=== PATIENT | male | born 1995 | race Caucasian/White ===

== ENCOUNTER 2018-04-28 21:38 | Emergency (ER) | payer SELFPAY ==
[2018-04-28 21:38] VITALS: BP 133/74; PULSE 71; RESP 16; TEMP 36.8; O2SAT 99; BMI 21.7
[2018-04-28 22:14] VITALS: BP 135/88; PULSE 67; RESP 14; O2SAT 97
--- NOTE | 2018-04-28 22:22 | CT_ITS ---
STUDY: CT ABDOMEN AND PELVIS WITH CONTRAST REASON FOR EXAM: Male, 23 years old. Crohn's disease. Vomiting and diarrhea. Previous bowel surgery. RADIATION DOSAGE (If Supplied By Facility): CTDIvol = ( 9.46 ) mGy, DLP = ( 445.30 ) mGycm TECHNIQUE: Transaxial images were obtained from the dome of the diaphragm to the symphysis pubis without oral contrast. 100ML ml of Isovue 300 contrast was administered. Sagittal and coronal images were reconstructed. Individualized dose optimization techniques were used for this CT. COMPARISON: None. FINDINGS: The visualized lung bases are unremarkable. The visualized portions of the heart are within normal limits. Normal liver. Normal gallbladder and extrahepatic biliary system. Normal spleen. Normal pancreas. Normal bilateral adrenal glands. 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 The right renal moiety is particularly amorphous. Since previous exam, patient has developed numerous renal stones as much as 5 or 6 mm size, primarily in the left and mid renal mass. No definite obstructing stone at this time. Evaluation of the GI tract is very limited without oral contrast in this postoperative patient with Crohn's disease. It is very difficult to evaluate bowel wall without oral contrast. Grossly normal stomach. No evidence for small bowel obstruction. In the right lower quadrant, there is a small bowel feeding tube and enteric anastomosis with the right colon, which appears fluid-filled and may have a thickened wall with enhancement. This may represent active inflammatory bowel disease. Also cannot exclude stricture at the anastomosis. This loop of bowel is approximately 12 cm in length. Findings can best be seen on coronal images 26-48 and sagittal images 29-47. No definite abnormality of the large bowel. Normal abdominal aorta. Normal inferior vena cava. There is retroperitoneal lymphadenopathy with enlarged nodes greater than 10-15mm in the short axis. Normal urinary bladder. Stable postsurgical changes in the right abdominal wall. Normal osseous structures. CT/Abdomen/Pelvis W IV Cont ONLY IMPRESSION: Abnormal appearance of the distal ileum up to and including the area of anastomosis with the right colon. Question active inflammatory bowel disease. Note that evaluation of patient's with Crohn's disease is limited without oral contrast is not given. Horseshoe kidney again noted with numerous renal stones having developed since previous exam. Electronically Signed: Louis Lassiter MD at 23:52 EDT , Service support ,
--- NOTE | 2018-04-28 22:25 | ED.VISSUMM ---
- ER Visit Summary Date of Service: 04/28/18 Chief Complaint: Abdominal pain History of Present Illness: The patient is a 23 M with a history of Crohn's disease who presents to the emergency department with abdominal pain. Patient states that he has been having symptoms emergently for 2 weeks, but they worsened over the past 2 days. He describes a sharp pain in his midepigastric area. His been nauseated and had 2 bouts of vomiting. Patient is not on any medications for Crohn's. He states that he has not seen GI in over a year. He denies any bloody diarrhea. He denies any fevers, chills, weight loss. He was recently treated for a staph infection of his arm and was on 2 antibiotics. He states he finishes treatment. He has no history of C. difficile. He has had prior small bowel obstruction, but states the symptoms feel different. Physical Examination: Vital signs reviewed General: Well-nourished, well-developed Head: Normocephalic, atraumatic Eyes: Pupils equal and reactive, extraocular muscles intact Neck, supple, no lymphadenopathy Heart: Regular rate and rhythm Respiratory: No distress, clear bilaterally Abdomen: Soft, mildly tender in the right lower quadrant area without rebound or guarding, nondistended, no peritoneal signs Back: Nontender Extremities: Nontender, no edema, no cords Skin: Normal color no rash Neuro: Alert and oriented, no focal or lateralizing deficits Test Results: [] Emergency Department Course and Treatment: IV was established. Patient was treated with IV fluids, antiemetics, and analgesics. He had marked improvement of his pain. His reexamination was soft and nontender. Screening labs are unremarkable. With the patient's history of Crohn's disease and small bowel obstruction, he was sent for CT with IV contrast. CT does demonstrate some terminal ileitis. I do for the patient is having mild exacerbation of his Crohn's disease. After discussion with him, I do feel that short burst of prednisone be appropriate. The patient will be started on Solu-Medrol. He will be kept on prednisone for the next 5 days. He will be treated with analgesics and antiemetics. He was counseled on concerning symptoms and reasons to return. He will be discharged home. Treatment Plan: [] Disposition: Discharge Impression: 1. Crohn's flare This note was generated with ADTELLIGENCEation software. It may contain incorrect words, spelling, and punctuation that were not noted in review of the chart prior to signing ED Disposition - Plan for ED Patient: Chief Complaint: Abd Pain Instructions: ED Inflam Bowel Disease Crohn Prescriptions: Hydrocodone Bitart/Apap 5-325 [[place] 5MG-325MG] 1 tab PO Q6H PRN PRN 3 Days #6 tab PRN Reason: Pain Ondansetron [Zofran Odt] 4 mg PO Q8H PRN PRN #10 tab PRN Reason: Nausea Prednisone [Deltasone] 40 mg PO DAILY #8 tab Referrals: Care Physician,No Primary [NON-STAFF] -
[2018-04-28] MEDS: Ondansetron 4 MG/2 ML Vial IV (22:58)
[2018-04-28] MEDS: Morphine 4 MG/ML Syringe IV (22:58)
[2018-04-28] MEDS: 0.9% Normal Saline 1,000 ML 1000 ML IV (22:58)
[2018-04-28 23:05] LABS: Absolute Lymphocyte Count 2.75 X10^3/ul (0.83-4.51); Absolute Neutrophil Count 6.7 X10^3/uL (2.0-7.7); Basophil# 0.03 X10^3/uL; Basophil% 0.3 % (0-1); Hematocrit 42.7 % (40-54); Hemoglobin 14.6 g/dl (13.0-16.5); Lymphocyte # 2.75 X10^3/ul (4.0); Lymphocyte % 27.7 % (19-41); Mean Corp Hgb Conc 34.2 g/gl (32-36); Mean Corpuscular Hgb 28.8 pg (27.0-32.0); Mean Corpuscular Volume 84.2 fL (80-94); Mean Platelet Vol. 9.5 fl (6.2-12.0); Neutrophil # 6.65 X10^3/uL (2.7-7.7); Neutrophil % 66.9 % (47-70); Platelet Count 252 K/mm3 (150-450); RBC Distribution Width CV 12.6 % (11.6-14.6); RBC Distribution Width SD 38.2 fl (35.1-43.9); Red Blood Count 5.07 M/mm3 (4.6-6.2); White Blood Count 9.9 K/mm3 (4.4-11.0)
[2018-04-28 23:07] LABS: POSITIVE COUNT NO; POSITIVE DIFFERENTIAL NO; POSITIVE MORPHOLOGY NO
[2018-04-28 23:19] LABS: ALB/GLOB Ratio 1.1 RATIO (0.9-2.4); AST(SGOT) 39 U/L (15-37); Alanine Aminotransfer ALT/SGPT 55 U/L (16-61); Albumin, Serum 3.6 g/dL (3.2-5.0); Alkaline Phosphatase 81 U/L (45-117); Anion Gap 7 (5-15); BUN 7 mg/dL (7-18); BUN/Creat Ratio 6.2 RATIO (10-20); Calcium,Total 8.7 mg/dL (8.5-10.1); Chloride 105 mmol/L (98-107); Creatinine, Serum 1.12 mg/dL (0.70-1.30); EST Glomerular Filtration Rate 87 mL/min (>60); Est Glom Filt Rate - Afr Amer 105 mL/min (>60); Globulin 3.2 g/dL (2.2-4.2); Glucose 93 mg/dL (74-106); Lipase 83 U/L (73-393); Potassium 3.3 mmol/L (3.5-5.1); Protein, Total 6.8 g/dL (6.4-8.2); Sodium Level 142 mmol/L (136-145)
[2018-04-29] MEDS: MethylPREDNISolone 125 MG/2 ML Vial 80 MG IV (00:12)
[2018-04-29 00:35] VITALS: PULSE 78; RESP 16; O2SAT 98
== END 2018-04-29 00:36 | disposition home or self-care (01) ==
PROVIDERS: Emergency Provider Emergency Medicine; Family Provider Pediatrics; PCP Pediatrics
DX: K50.90 Crohn's disease, unspecified, without complications (principal)
CPT/HCPCS: 74177; 80053; 83690; 85025; 96361; 96374; 96375; 99283; J7030; Q9967; A4216; J2405

== ENCOUNTER 2018-05-28 12:21 | Emergency (ER) | payer SELFPAY ==
[2018-05-28 12:22] VITALS: BP 122/75; PULSE 82; RESP 18; TEMP 36.7; O2SAT 99; BMI 21.2
[2018-05-28 13:21] LABS: Absolute Lymphocyte Count 2.07 X10^3/ul (0.83-4.51); Absolute Neutrophil Count 5.4 X10^3/uL (2.0-7.7); Basophil# 0.01 X10^3/uL; Basophil% 0.1 % (0-1); Eosinophil# 0.05 X10^3/uL; Eosinophils% 0.6 % (0-5); Hematocrit 45.9 % (40-54); Hemoglobin 16.1 g/dl (13.0-16.5); Lymphocyte # 2.07 X10^3/ul (4.0); Lymphocyte % 25.9 % (19-41); Mean Corp Hgb Conc 35.1 g/gl (32-36); Mean Corpuscular Hgb 29.2 pg (27.0-32.0); Mean Corpuscular Volume 83.3 fL (80-94); Mean Platelet Vol. 9.6 fl (6.2-12.0); Monocyte# 0.48 X10^3/uL; Neutrophil # 5.38 X10^3/uL (2.7-7.7); Neutrophil % 67.3 % (47-70); POSITIVE COUNT NO; POSITIVE DIFFERENTIAL NO; POSITIVE MORPHOLOGY NO; Platelet Count 237 K/mm3 (150-450); RBC Distribution Width CV 12.6 % (11.6-14.6); RBC Distribution Width SD 38.2 fl (35.1-43.9); Red Blood Count 5.51 M/mm3 (4.6-6.2)
[2018-05-28 13:33] LABS: Anion Gap 7 (5-15); BUN 10 mg/dL (7-18); BUN/Creat Ratio 8.6 RATIO (10-20); Calcium,Total 9.1 mg/dL (8.5-10.1); Chloride 106 mmol/L (98-107); Creatinine, Serum 1.16 mg/dL (0.70-1.30); EST Glomerular Filtration Rate 83 mL/min (>60); Est Glom Filt Rate - Afr Amer 101 mL/min (>60); Estimated Creatinine Clearance 100.45 ml/min; Glucose 93 mg/dL (74-106); Potassium 4.1 mmol/L (3.5-5.1); Sodium Level 140 mmol/L (136-145)
[2018-05-28 14:14] LABS: Bacteria 0 SEEN /hpf (None Seen); Mucous, Urine 0 SEEN /hpf (<or=2+); Squamous Epithelial Cells - UA 0 SEEN /hpf (0-5)
[2018-05-28 14:23] LABS: Color, Urine Yellow (Yellow); Glucose, Dipstick Normal (Normal); Ketone-Dipstick Negative (Negative); Leukocyte Esterase-Dipstick Negative /ul (Negative); Nitrite-Dipstick Negative (Negative); Occult Blood-Urine 10 /ul (Negative); Protein-Dipstick Negative (Negative); Urine Bilirubin Dipstick Negative (Negative); Urine Clarity Clear (Clear); Urine Urobilinogen Normal (Normal)
[2018-05-28 14:30] LABS: Red Blood Cells-Urine 0-5 SEEN /hpf (0-5); White Blood Cells 0-5 SEEN /hpf (0-5)
[2018-05-28 14:31] VITALS: BP 124/89; PULSE 70; RESP 16; O2SAT 97
--- NOTE | 2018-05-28 14:36 | ED.VISSUMM ---
- ER Visit Summary Date of Service: 05/28/18 Chief Complaint: [] Epigastric pain history of Crohn's disease History of Present Illness: The patient is a 23 M [] Crohn's disease, he indicates that prior abdominal surgery related to the above he is to see a GI physician later [facility] that physician moved his insurance changed so he is has a primary care physician but has not seen any physicians for his Crohn's disease in some time. Indicates that the epigastric pain about 3 days ago. He is able to eat and drink his bowel bladder habits been normal no fever no cough indicates usually when he experiences this type of pain he is given prednisone he had nowhere to go for the prednisone so he came to the emergency department he has no other complaints Physical Examination: [] Vital signs are within normal range she is had no fever no cough again bowel bladder habits have been normal he is resting the bed no distress head neck unremarkable the chest is clear the heart tones unremarkable the abdomen is soft there is prior abdominal incisions from prior surgeries he complains of epigastric pain but the abdomen is soft there is no rebound guarding organomegaly there is no distention he assures me is having normal bowel habits without blood there is no physical findings or historical findings to suggest bowel obstruction or infection he is awake alert moving all fours backs unremarkable Test Results: [] Emergency Department Course and Treatment: [] IV fluids screening labs unremarkable he is taking oral fluids here and soft foods, he wants to go home he does not wish to be admitted he indicates he had a bowel obstruction before he does not feels if he has one he simply wants prednisone to help with his symptoms. I explained the prednisone can mask his symptoms and cause other complications in the emergency department is not the place to obtain prednisone given that he is between physicians he was given 40 mg of prednisone here started on 20 mill grams of prednisone for 4 days through the weekend to allow him the opportunity follow-up with the [facility] G[facility] physicians or his primary care physician for further management he will return for change in symptoms he agrees with this plan Treatment Plan: [] Disposition: [] Home stable Impression: [] epiGastric pain, exacerbation of Crohn's disease This note was generated with BioAssets Developmentation software. It may contain incorrect words, spelling, and punctuation that were not noted in review of the chart prior to signing ED Disposition - Plan for ED Patient: Chief Complaint: Abd Pain Referrals: Gabino Pace MD [Primary Care Provider] -
--- NOTE | 2018-05-28 14:38 | ED.DEP ---
ED Disposition - Plan for ED Patient: Chief Complaint: Abd Pain Instructions: ED Abdominal Pain Unkn Cause Prescriptions: Prednisone [Deltasone] 20 mg PO DAILY #4 tab Referrals: Gabino Pace MD [Primary Care Provider] -
[2018-05-28] MEDS: 0.9% Normal Saline 1,000 ML 999 ML IV (14:57)
[2018-05-28] MEDS: predniSONE 20 MG Tablet 40 MG PO (14:57)
== END 2018-05-28 15:48 | disposition home or self-care (01) ==
LOC: ED 14:30
PROVIDERS: Emergency Provider Emergency Medicine; Family Provider Pediatrics; PCP Pediatrics
DX: K50.90 Crohn's disease, unspecified, without complications (principal)
CPT/HCPCS: 80048; 81001; 85025; 96360; 99283; J7030; A4216

== ENCOUNTER 2018-11-25 21:17 | Emergency (ER) | payer SELFPAY ==
[2018-11-25 21:17] VITALS: BP 137/88; PULSE 72; RESP 16; TEMP 37.1; O2SAT 96; BMI 23.8
[2018-11-25 22:02] LABS: Bacteria 0 SEEN /hpf (None Seen); Mucous, Urine 0 SEEN /hpf (<or=2+); Squamous Epithelial Cells - UA 0 SEEN /hpf (0-5); White Blood Cells 0 SEEN /hpf (0-5)
[2018-11-25 22:12] LABS: Color, Urine Yellow (Yellow); Glucose, Dipstick Normal (Normal); Ketone-Dipstick 5 mg/dl (Negative); Leukocyte Esterase-Dipstick Negative /ul (Negative); Nitrite-Dipstick Negative (Negative); Occult Blood-Urine 10 /ul (Negative); Protein-Dipstick Negative (Negative); Urine Bilirubin Dipstick Negative (Negative); Urine Clarity Clear (Clear); Urine Urobilinogen 1 mg/dl (Normal); Urine pH 6.5 (5.0 - 8.0)
[2018-11-25 22:13] LABS: Red Blood Cells-Urine 0-5 SEEN /hpf (0-5)
[2018-11-25] MEDS: Acetaminophen 500 MG Tablet 1000 MG PO (22:18)
--- NOTE | 2018-11-25 22:32 | ED.VISSUMM ---
- ER Visit Summary Date of Service: 11/25/18 Chief Complaint: Dysuria History of Present Illness: The patient is a 23 M who presents the emergency department 1 week of a constant right flank pain. There is no waxing and waning to it there are no times but has not been there. Nothing seems to make it better or worse. He also notes some painful urination and frequent small amounts. Notes nausea but no vomiting. He has a history of Crohn's disease and states that he always is nauseous. Sounds like he has had ileocolectomy with reversal in 2014. He is a smoker. States he has no penile drainage or lesions. He has been in a monogamous relationship for 2 years. Physical Examination: Afebrile vital signs are stable Gen: Well-nourished well-developed Head: Normocephalic atraumatic Eyes: Perrl EOMI ENT: TMs clear no rhinorrhea moist mucous membranes Neck: Supple no lymphadenopathy no JVD nontender CVS: Regular rate rhythm no murmurs normal S1-S2 Respiratory: No distress clear to auscultation bilaterally chest nontender Abdomen: Soft nontender nondistended normal bowel sounds no masses Back: Nontender Extremity: Nontender no edema Skin: Normal color no rash Neuro: alert orientated ?3 CN II-XII intact normal strength sensation reflexes gait cerebellar Psych: Normal affect normal mood Test Results: UA was normal Emergency Department Course and Treatment: Patient has had numerous CTs over the course of his lifetime due to his Crohn's. I have low suspicion based on history and physical that this is a kidney stone. I think is reasonable to treat with anti-inflammatories and oral hydration. Encouraged him to keep his urine a clear to light yellow. If symptoms persist more than a few days now he should follow-up with urology. Patient is agreeable to this plan. Impression: 1. Dysuria 2. Flank pain This note was generated with Klosetshop dictation software. It may contain incorrect words, spelling, and punctuation that were not noted in review of the chart prior to signing ED Disposition - Plan for ED Patient: Disposition: Home or Assisted Living Instructions: ED Dysuria Uncertain Cause Referrals: Leonel Salas MD [STAFF PHYSICIAN] - 3-5 Days if not improving
--- NOTE | 2018-11-25 22:35 | ED.DCSUM_ITS ---
- ER Visit Summary Date of Service: 11/25/18 Chief Complaint: Dysuria History of Present Illness: The patient is a 23 M who presents the emergency department 1 week of a constant right flank pain. There is no waxing and waning to it there are no times but has not been there. Nothing seems to make it bean r or worse. He also notes some painful urination and frequent small amounts. Notes nausea but no vomiting. He has a history of Crohn's disease and states that he always is nauseous. Sounds like he has had ileocolectomy with reversal in 2014. He is a smoker. States he has no penile drainage or lesions. He has been in a monogamous relationship for 2 years. Physical Examination: Afebrile vital signs are stable Gen: Well-nourished well-developed Head: Normocephalic atraumatic Eyes: Perrl EOMI ENT: TMs clear no rhinorrhea moist mucous membranes Neck: Supple no lymphadenopathy no JVD nontender CVS: Regular rate rhythm no murmurs normal S1-S2 Respiratory: No distress clear to auscultation bilaterally chest nontender Abdomen: Soft nontender nondistended normal bowel sounds no masses Back: Nontender Extremity: Nontender no edema Skin: Normal color no rash Neuro: alert orientated ?3 CN II-XII intact normal strength sensation reflexes gait cerebellar Psych: Normal affect normal mood Test Results: UA was normal Emergency Department Course and Treatment: Patient has had numerous CTs over the course of his lifetime due to his Crohn's. I have low suspicion based on history and physical that this is a kidney stone. I think is reasonable to treat with anti-inflammatories and oral hydration. Encouraged him to keep his urine a clear to light yellow. If symptoms persist more than a few days now he should follow-up with urology. Patient is agreeable to this plan. Impression: 1. Dysuria 2. Flank pain This note was generated with OBMedical dictation software. It may contain incorrect words, spelling, and punctuation that were not noted in review of the chart prior to signing ED Disposition - Plan for ED Patient: Disposition: Home or Assisted Living Instructions: ED Dysuria Uncertain Cause Referrals: Leonel Salas MD [STAFF PHYSICIAN] - 3-5 Days if not improving
[2018-11-25 22:44] VITALS: PULSE 73; RESP 16; O2SAT 97
== END 2018-11-25 22:50 | disposition home or self-care (01) ==
PROVIDERS: Emergency Provider Emergency Medicine
DX: R30.0 Dysuria (principal); R10.9 Unspecified abdominal pain; K50.90 Crohn's disease, unspecified, without complications; F17.200 Nicotine dependence, unspecified, uncomplicated
CPT/HCPCS: 81001; 99283

== ENCOUNTER 2019-12-23 10:06 | Emergency (ER) | payer MEDICAID, SELFPAY ==
[2019-12-23] VITALS (7 sets, daily range): BP systolic 120–173; BP diastolic 70–101; PULSE 90–127; RESP 14–22; TEMP 37.2; O2SAT 98–99; BMI 23.8
[2019-12-23] MEDS: Ziprasidone IM 20 MG/ML VIAL IM (10:10)
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
--- NOTE | 2019-12-23 10:16 | EKG12_ITS ---
Test Reason : PYSCH Blood Pressure : / mmHG Vent. Rate : 101 BPM Atrial Rate : 101 BPM P-R Int : 126 ms QRS Dur : 082 ms QT Int : 336 ms P-R-T Axes : 091 072 070 degrees QTc Int : 435 ms Sinus tachycardia Otherwise normal ECG Confirmed by MISBAH STUBBS ([id number]), editor house organ JIM DALTON ([id number] on 12/27/2019 2:51:29 PM Referred By: CHRISTA Confirmed By:MISBAH STUBBS
[2019-12-23 11:10] LABS: Absolute Lymphocyte Count 0.91 X10^3/uL (0.83-4.51); Absolute Neutrophil Count 8.4 X10^3/uL (2.0-7.7); Basophil# 0.02 X10^3/uL; Basophil% 0.2 % (0-1); Eosinophil# 0.01 X10^3/uL; Eosinophils% 0.1 % (0-5); Hematocrit 48.5 % (40-54); Hemoglobin 16.5 g/dL (13.0-16.5); Lymphocyte # 0.91 X10^3/ul (4.0); Lymphocyte % 9.3 % (19-41); Mean Corpuscular Hgb 29.1 pg (27.0-32.0); Mean Corpuscular Volume 85.5 fL (80-94); Mean Platelet Vol. 9.5 fl (6.2-12.0); Monocyte# 0.39 X10^3/uL; NRBC Flagged by Analyzer 0 % (0-5); Neutrophil # 8.44 X10^3/uL (2.7-7.7); Neutrophil % 86.2 % (47-70); Platelet Count 244 K/mm3 (150-450); RBC Distribution Width CV 12.3 % (11.6-14.6); Red Blood Count 5.67 M/mm3 (4.6-6.2); White Blood Count 9.8 K/mm3 (4.4-11.0)
[2019-12-23 11:25] LABS: ALB/GLOB Ratio 1.2 RATIO (0.9-2.4); AST(SGOT) 39 U/L (15-37); Alanine Aminotransfer ALT/SGPT 69 U/L (16-61); Albumin, Serum 4.5 g/dL (3.2-5.0); Alkaline Phosphatase 95 U/L (45-117); Anion Gap 8 (5-15); BUN 14 mg/dL (7-18); BUN/Creat Ratio 9.6 RATIO (10-20); Calcium,Total 9.4 mg/dL (8.5-10.1); Chloride 104 mmol/L (98-107); Creatinine, Serum 1.46 mg/dL (0.70-1.30); EST Glomerular Filtration Rate 63 mL/min (>60); Est Glom Filt Rate - Afr Amer 76 mL/min (>60); Estimated Creatinine Clearance 86.37 ml/min; Globulin 3.7 g/dL (2.2-4.2); Glucose 144 mg/dL (74-106); Potassium 3.2 mmol/L (3.5-5.1); Protein, Total 8.2 g/dL (6.4-8.2); Sodium Level 137 mmol/L (136-145)
[2019-12-23 12:18] LABS: Amphetamine Urine VISTA NEGATIVE (<1000 ng/mL); Barbiturate Urine VISTA NEGATIVE (< 200 ng/mL); Benzodiazepine Urine VISTA NEGATIVE (< 200 ng/mL); Cocaine Urine VISTA NEGATIVE (< 300 ng/mL); Ecstacy Urine VISTA NEGATIVE (< 500 ng/mL); Methadone Urine VISTA NEGATIVE (< 300 ng/mL); PCP Urine VISTA NEGATIVE (< 25 ng/mL); THC Urine VISTA POSITIVE (< 50 ng/mL); Vista UDS pH Range 5
[2019-12-23 12:32] LABS: Acetaminophen (Tylenol) Level < 2.0 ug/mL (10.0-30.0); Alcohol, Blood (Medical)-Serum < 3.0 mg/dL; Salicylate 3.1 mg/dL (2.8-20.0)
--- NOTE | 2019-12-23 12:42 | ED.RN ---
MARLENA FROM SOCIAL WORK IN TO SEE PT. PT STATES CALL MY PARENTS, I DON'T WANT TO TALK
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
--- NOTE | 2019-12-23 14:02 | CM.ED ---
SOCIAL WORK REFERRAL CALLED AND FAXED TO [facility]. AWAITING ACCEPTANCE. Spencer WILLS, BAG MACHINE ADJUSTER, GIVING OFFICER
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
--- NOTE | 2019-12-23 15:20 | CM.ED ---
SOCIAL WORK CALL TO [facility] TO VERIFY REFERRAL RECEIVED. SURVEY PROJECT MANAGER REPORTS HAS NOT RECEIVED REFERRAL AND PROVIDED WITH DIFFERENT FAX NUMBER . REFERRAL RE-FAXED AT THIS TIME.
--- NOTE | 2019-12-23 15:44 | ED.RN ---
PT WITH ALL RESTRAINTS REMOVED. PT COOPERATIVE. DINNER ORDERED
--- NOTE | 2019-12-23 16:13 | CM.ED ---
SOCIAL WORK CALL TO [facility] TO INQUIRE ABOUT REFERRAL. PER WORKER, REFERRAL HAS BEEN RECEIVED. WORKER ATTEMPTED TO CONTACT INTAKE AND REPORTS NO ONE ANSWERING FOR INTAKE AT THIS TIME. WORKER STATES WILL SEND MESSAGE AND HAVE SOMEONE CALL THIS WORKER BACK REGARDING STATUS OF REFERRAL. AWAITING ACCEPTANCE AND CALL BACK AT THIS TIME.
--- NOTE | 2019-12-23 17:38 | ED.RN ---
Mother came and picked up keys from patients belongings. pt aware and verbalizes acceptance.
--- NOTE | 2019-12-23 17:39 | CM.ED ---
SOCIAL WORK CALL TO [facility], SPOKE WITH EMS DRIVER WHO REPORTS PLENTY OF BEDS AND REFERRAL SHOULD BE REVIEWED WITHIN THE HOUR. STILL AWAITING ACCEPTANCE. PLAN: REFERRAL PENDING WITH [facility]. MARJORIE LUGO, AGENCY SALES DIRECTOR.
--- NOTE | 2019-12-23 18:07 | CM.ED ---
SOCIAL WORK RECEIVED CALL FROM [place] WITH [facility] REQUESTING ADDITIONAL INFORMATION. INFORMATION FAXED AT THIS TIME PER REQUEST. Spencer WILLS MSW, SHALLOT CLEANER.
--- NOTE | 2019-12-23 18:21 | CM.ED ---
SOCIAL WORK RECEIVED CALL FROM [facility] AIR SHOVEL OPERATOR, PEDRO APOLOGIZING FOR LONG WAIT TIME ON REFERRAL REVIEW. INTAKE REVIEWING REFERRAL AND WILL CALL BACK SHORTLY. Spencer WILLS, CORRECTIONS SPECIALIST, CARPET MECHANIC.
--- NOTE | 2019-12-23 18:52 | CM.ED ---
SOCIAL WORK CALL FROM [place] [facility]. PATIENT ACCEPTED BY KIESHA ARRINGTON NP TO THE [facility]. NURSE TO CALL REPORT TO . STAFF UPDATED. BARTENDER SERVER TO SET UP TRANSPORT. Spencer WILLS, ASSISTANT MANAGER/EMBALMER, AUTO DETAILER.
== END 2019-12-23 19:57 ==
PROVIDERS: Emergency Provider Emergency Medicine; PCP Pediatrics
DX: F23 Brief psychotic disorder (principal)
CPT/HCPCS: 80053; 80307; 80320; 80329; 85025; 93005; 96372; 99285; A4216; G0480; J3486

== ENCOUNTER 2021-12-06 11:07 | Emergency (ER) | payer MEDICAID, SELFPAY ==
[2021-12-06 11:08] VITALS: BP 153/79; PULSE 84; RESP 17; TEMP 35.8; O2SAT 96; BMI 30.7
--- NOTE | 2021-12-06 11:45 | EDS_ITS ---
HPI <HAYLEE Jacob - Last Filed: 12/06/21 13:24> History of Present Illness Chief Complaint: Upper Extremity Injury Narrative Narrative: 26-year-old male with no sniffing medical history presents to the emergency department after dropping a piece of equipment on his right hand yesterday afternoon. Patient has pain to the right second and third digit distally. Patient's right second digit has a laceration to the dorsal aspect above the DIP joint, patient does have nail involvement, the nail is ecchymotic, it seems that the nail is unstable. Patient tetanus vaccination is unknown. He denies any neurological focal deficit PFSH <HAYLEE Jacob - Last Filed: 12/06/21 13:24> [facility] Medical History (Updated 12/06/21 @ 13:21 by HAYLEE Jacob) Back pain Crohn's disease Home Medications aripiprazole [Abilify Maintena] 400 mg IM QMONTH 12/06/21 [History Last Taken Unknown] cephalexin 500 mg PO Q6 #40 cap 12/06/21 [Rx Last Taken Unknown] oxycodone-acetaminophen [Percocet] 1 tab PO Q6H PRN 3 Days #10 tab 12/06/21 [Rx Last Taken Unknown] Allergy/AdvReac Type Severity Reaction Status Date / Time No Known Allergies Allergy Verified 12/06/21 11:07 Social History (Updated 04/21/18 @ 09:48 by Justen GANDHI, PA) Smoking Status: Unknown if ever smoked alcohol intake: never ROS <HAYLEE Jacob - Last Filed: 12/06/21 13:24> ROS ED ROS Narrative Constitutional: Negative for fever, chills, weight loss, weakness Eyes: Negative for vision loss, vision change, double vision ENT: Negative for any sore throat, ear pain, congestion Cardiovascular: Negative for any chest pain, tightness, palpitations, racing heartbeat Respiratory: Negative for any cough, sputum production, hemoptysis, shortness of breath, shortness of breath on exertion, orthopnea Gastrointestinal: Negative for any abdominal pain, nausea, vomiting, diarrhea, constipation, blood in stool, blood in vomit : Negative for any urinary frequency, incontinence, dysuria, retention, blood in urine Muscle skeletal: Negative for any muscle joint pain, stiffness, myalgias, arthralgias, neck pain, back pain. Positive for right hand pain, right hand laceration Neurological: Negative for any headache, dizziness, syncope, numbness or tingling Skin: Negative for any rashes, lumps, itching, abrasions. Laceration to the right second digit Psychiatric: Negative for any depression, anxiety, stress, suicidal ideation, homicidal ideation Hematologic: Negative for any easy bruising, excessive bruising, easy bleeding Allergies: Negative for any eczema, hives, rash EXAM <HAYLEE Jacob - Last Filed: 12/06/21 13:24> Physical Exam Narrative Exam Narrative: Vital signs reviewed. Extremities: On initial examination, patient had dried blood to his right second and third digits. Patient's injuries occurred on to the distal aspects of the second and third digit above the DIP joint. Patient's right second digit has a laceration to the dorsal aspect just below the base of the nail, the nail does appear to be out of place, not securely placed in the root. Patient is full range of motion of the digits, +2 radial pulse. A for any neurological focal deficit. Neuro: Cranial nerves II through XII intact, no focal neurological deficits. Skin: Clean dry and intact with no rash, purpura, petechiae, vesicles or pustules.. Patient does have a laceration to the dorsal aspect above the DIP joint of the second digit of the right hand Backslash flank: No CVA tenderness, no midline spinal tenderness, no deformity. Psych: Normal mood and affect. No SI, HI or acute psychosis. Const Vital Signs: 12/06/21 11:08 Temperature 96.5 F L Temperature Source Temporal Pulse Rate 84 Respiratory Rate 17 Blood Pressure 153/79 H Blood Pressure Mean 103 Pulse Ox 96 Oxygen Delivery Method Room Air Positive well nourished and well developed General Appearance ED: well developed MDM <HAYLEE Jacob - Last Filed: 12/06/21 13:24> MDM MDM Narrative Medical decision making narrative: Patient appears well, patient appears nontoxic, vital signs are stable. Patient presents to the emergency department after a finger injury which occurred yesterday. Patient did receive x-rays of this extremity. X-ray shows a comminuted fracture of the tuft of the distal phalanx of the second digit with overlying soft tissue laceration. Patient did have the nail removed, I was able to place 4 simple interrupted sutures of Vicryl in the nailbed to repair it. Patient tolerated well. Patient will be placed in a Xeroform dressing with a finger splint. He will follow-up closely with orthopedics. Due to the fracture and laceration, patient placed on Keflex as well as Percocet. Instructed return for any worsening pain, fever chills nausea vomiting. Patient is stable for discharge. <Dr. Anastasiya Sexton DO - Last Filed: 12/11/21 00:29> [facility] Narrative Medical decision making narrative: I have personally performed a face to face assessment of the patient and have reviewed the IHSAN Note. I performed a substantive portion of the visit including all aspects of the following. My warren findings include: History is patient is a 26-year-old male presenting with injury and trauma to his left index finger. This occurred yesterday when he dropped something on it. No associated numbness or tingling. No other injuries reported. Exam is deformity of the left distal index finger and nailbed. Subungual hematoma appreciated. Laceration present involving the nailbed and extending laterally. Medical Decision Making patient is evaluated for injury to his left index finger. Appears to have a tuft fracture with associated nailbed laceration. Start antibiotics for suspected open fracture. Is neurovascularly intact. Repair performed by [employer] with my supervision. See procedure note however nail is removed and nailbed laceration repair performed. Unable to place any splint in the nail fold, I suspect because the injury was over 24 hours ago. Patient placed in AlumaFoam splint and dressing. Given orthopedics for outpatient follow-up. Given antibiotics as well as pain medication at time of discharge. Other additions or changes: [None] Procedures <HAYLEE Jacob - Last Filed: 12/06/21 13:24> Lacerations Finger laceration: Length: 12 in (1 cm) Depth: Sub Q Shape: Flap Prep: Sterile Conditions and Shure-Clens Laceration repair: Digital block, Irrigated (Irrigated copiously with 1000 cc of normal saline), Lidocaine and Wound explored Irrigated (ml): 500 Number of Sutures/[place]: 4 Suture Information: Vicryl Discharge Plan Triage Chief Complaint: Upper Extremity Injury ED Midlevel Provider: Hamzah Gonsalves ED Provider: Anastasiya Sexton Dx/Rx/DC Orders Clinical Impression: Finger fracture, Nailbed injury Instructions: ED Fracture, Finger, Closed, ED FINGERNAIL REMOVAL Prescriptions: New cephalexin 500 mg capsule 500 mg PO Q6 Qty: 40 RF: 0 oxycodone-acetaminophen [Percocet] 5-325 mg tablet 1 tab PO Q6H PRN (Reason: pain) 3 Days Qty: 10 RF: 0 No Action Abilify Maintena 400 mg suspension,extended rel syring 400 mg IM QMONTH RF: 0 Primary Care Provider: Gabino Pace Referrals: Gabino Pace MD [Primary Care Provider] - Charan Paulson MD [STAFF PHYSICIAN] - 2 Days Activity Restrictions/Additional Instructions: You need to follow-up with orthopedics, please return for any signs or symptoms of infection. Please take antibiotics until they are finished. Use pain medicine as needed Print Language: [place] Disposition Disposition: Home, Self Care Discharge Date/Time: 12/06/21 13:43
--- NOTE | 2021-12-06 11:51 | RAD_ITS ---
INDICATION: injury EXAMINATION/TECHNIQUE: X-RAY - LEFT XR Hand Min 3 Views 3 VIEWS COMPARISON: None. FINDINGS: Comminuted fracture visualized involving the tuft of the distal phalange of the second digit overlying soft tissue lacerations are seen. The remaining phalanges demonstrate no evidence of cortical irregularities or lucencies to suggest fractures. The metacarpal and carpal bones are unremarkable. RAD/Hand Min 3 Views IMPRESSION: Comminuted fracture of the tuft of the distal phalanx of the second digit with overlying soft tissue laceration. Electronically Signed: Karson Hawk MD at 12:05 EDT ,
[2021-12-06] MEDS: Diphth,Pertuss(Acell),Tet Vac 0.5 ML Vial IM (13:07)
[2021-12-06] MEDS: Lidocaine 1% (20 ml mdv) 20 ML Vial 3 ML INFILT (13:08)
[2021-12-06] MEDS: oxyCODONE 5 MG Tablet PO (13:41)
[2021-12-06] MEDS: Cephalexin 250 MG Capsule 500 MG PO (13:41)
[2021-12-06 13:43] VITALS: BP 128/71; PULSE 66; RESP 18; TEMP 36.9; O2SAT 98
== END 2021-12-06 13:43 | disposition home or self-care (01) ==
PROVIDERS: Emergency Provider Emergency Medicine; PCP Pediatrics; Visit Provider Emergency Medicine
DX: S62.601A Fracture of unspecified phalanx of left index finger, initial encounter for closed fracture (principal); Z23 Encounter for immunization; X58.XXXA Exposure to other specified factors, initial encounter
CPT/HCPCS: 73130; 90471; 90715; 99283